=== PATIENT | female | born 1985 | race Hispanic/Latino ===

== ENCOUNTER 2024-10-30 05:55 | Day surgery (SDC) | payer BC ==
[2024-10-21 08:35] VITALS: BMI 34.4
[2024-10-30] MEDS ORDERED: Bupivacaine HCl 0.5%/Epinephrine 1:200,000/PF 30 ml Vial ONE (06:54)
[2024-10-30] MEDS ORDERED: CEFAZOLIN 2 GM VIAL ONE (06:54)
[2024-10-30] MEDS ORDERED: PROPOFOL 40 ML ONE (07:03)
[2024-10-30] MEDS ORDERED: Ondansetron PF 4 MG/2 ML Vial ONE (07:11)
[2024-10-30] MEDS ORDERED: Glycopyrrolate 0.2 MG/ML 5 ML SYRINGE ONE (08:08)
[2024-10-30] MEDS ORDERED: Neostigmine 1 MG/ML in 5 ML SYRINGE ONE (08:08)
[2024-10-30] MEDS ORDERED: HYDROcodone/Acetaminophen 5/325 mg Tablet ONE (10:08)
== END 2024-10-30 10:30 | disposition home or self-care (01) ==
LOC: CSHSDC 05:55
PROVIDERS: ATTEND Surgery
PROC: 0JB80ZZ Excision of Abdomen Subcutaneous Tissue and Fascia, Open Approach (ICD-10-PCS; principal; 2024-10-30)
DX: N80.C11 Endometriosis of the anterior abdominal wall, fascia and muscular layers (principal); N80.C10 Endometriosis of the anterior abdominal wall, subcutaneous tissue; E11.9 Type 2 diabetes mellitus without complications; Z98.51 Tubal ligation status; Z87.59 Personal history of other complications of pregnancy, childbirth and the puerperium; Z79.85 Long-term (current) use of injectable non-insulin antidiabetic drugs; Z79.84 Long term (current) use of oral hypoglycemic drugs; Z79.4 Long term (current) use of insulin
CPT/HCPCS: 36416; 88305; 88341; 88342; J1100; J2405; J2704; J3010